=== PATIENT | female | born 1930 | race Caucasian/White ===

== ENCOUNTER 2016-04-13 20:56 | Emergency (ER) | payer OTHER, BC ==
[~2016-04-13] VITALS: Ht 162.6 cm; Wt 54.7 kg
[~2016-04-13 20:56] MED LIST: ADULT LOW DOSE81 M1 PO; ASACOL HD800 MG PO; ASACOL400 MG PO; ASPIRIN81 M2 PO; CALCIUM600 MG PO; CARDIZEM30 MG PO; DOXYCYCLINE HY100 MG PO; FOSAMAX70 MG PO; GLUCOSAMINE &1 EACH PO; MOTRIN100 MG PO; MULTIVITAMIN1 EAC1 PO; OMEGA-31000 M1 PO; PANTOPRAZOLE SO40 MG PO; PROTONIX40 MG PO; SUMYCIN 250250 MG PO; VESICARE10 MG PO
[2016-04-13 23:45] VITALS: BP 139/64
== END 2016-04-13 23:59 | disposition home or self-care (01) ==
LOC: EME 20:56
DX: S09.0XXA Injury of blood vessels of head, not elsewhere classified, initial encounter (principal); S00.03XA Contusion of scalp, initial encounter; W18.30XA Fall on same level, unspecified, initial encounter; Z79.82 Long term (current) use of aspirin; Z87.891 Personal history of nicotine dependence; Z88.0 Allergy status to penicillin; Z88.6 Allergy status to analgesic agent
CPT/HCPCS: 70450; 72125; 99281; 99284

== ENCOUNTER 2016-07-19 12:18 | Emergency (ER) | payer OTHER, BC ==
[~2016-07-19] VITALS: Ht 157.5 cm; Wt 56.3 kg
[2016-07-19] MEDS ORDERED: ULTRAM50 MG PO (14:31)
[2016-07-19 14:45] VITALS: BP 150/64
== END 2016-07-19 15:43 | disposition home or self-care (01) ==
LOC: EME 12:18
DX: S42.032A Displaced fracture of lateral end of left clavicle, initial encounter for closed fracture (principal); M25.522 Pain in left elbow; W18.09XA Striking against other object with subsequent fall, initial encounter; Y93.E5 Activity, floor mopping and cleaning; Z85.3 Personal history of malignant neoplasm of breast; Z90.13 Acquired absence of bilateral breasts and nipples; Z90.710 Acquired absence of both cervix and uterus; Z79.82 Long term (current) use of aspirin; Z87.891 Personal history of nicotine dependence
CPT/HCPCS: 73030; 73080; 99281; 99284